=== PATIENT | female | born 1980 | race Caucasian/White ===

== ENCOUNTER 2019-05-12 13:57 | Emergency (ER) | payer OTHER ==
[2019-05-12 14:33] VITALS: BP 139/78
--- NOTE | 2019-05-12 15:32 | UC ---
Abdominal Pain Female HPI - HPI Summary HPI Summary: SUDDEN ONSET OF SHARP RUQ ABDOMINAL PAIN 2 DAYS AGO AFTER EATING PACO. LASTED FOR HOURS. SX WORSENED AGAIN AFTER EATING A TURKEY SANDWICH LATER THAT DAY. SX HAVE PERSISTED AND PAIN RADIATED TO RIGHT FLANK. PT ALSO HAS NAUSEA, CHILLS AND DECREASED APPETITE. NO FEVER. NO URINARY SX. - History of Current Complaint Chief Complaint: UCGI Stated Complaint: BACK PAIN Time Seen by Provider: 05/12/19 15:12 Hx Obtained From: Patient Hx Last Menstrual Period: 05/05/19 Onset/Duration: Sudden Onset, Lasting Days, Still Present Severity Initially: Moderate Severity Currently: Moderate Pain Intensity: 6 Pain Scale Used: 0-10 Numeric Location: Discrete At: RUQ Radiates: Yes Radiates to: Flank Character: Sharp Aggravating Factor(s): Food Alleviating Factor(s): Nothing Associated Signs and Symptoms: Positive: Back Pain, Decreased Appetite, Nausea. Negative: Diaphoresis, Fever, Constipation, Blood in Stool, Urinary Symptoms Allergies/Adverse Reactions: Allergies Allergy/AdvReac Type Severity Reaction Status Date / Time cyclobenzaprine Allergy Hives Verified 05/12/19 14:23 [From Flexeril] duloxetine [From Cymbalta] Allergy Blisters Verified 05/12/19 14:22 ibuprofen Allergy Diarrhea Verified 05/12/19 14:24 latex Allergy Rash Verified 05/12/19 14:23 Latex, Natural Rubber Allergy Rash Verified 05/12/19 14:24 metaxalone [From Skelaxin] Allergy Hives Verified 05/12/19 14:23 pregabalin [From Lyrica] Allergy Blisters Verified 05/12/19 14:22 Lidocaine patches 5% Allergy Vomiting Uncoded 05/12/19 14:24 PMH/Surg Hx/FS Hx/Imm Hx - Additional Past Medical History Additional PMH: CELIAC, FIBROMYALGIA Other History Of: Negative For: Anticoagulant Therapy - Surgical History Surgical History: Yes Surgery Procedure, Year, and Place: Right wrist ganglion cyst removed, cyst removed from 3rd digit on right finger 09/23/13 - Family History Known Family History: Positive: Cardiac Disease, Hypertension, Diabetes - Social History Alcohol Use: None Substance Use Type: None Smoking Status (MU): Former Smoker Type: Cigarettes Amount Used/How Often: 2013 Have You Smoked in the Last Year: Yes - Immunization History Most Recent Influenza Vaccination: Most Recent Tetanus Shot: 2005 Review of Systems All Other Systems Reviewed And Are Negative: Yes Constitutional: Positive: Chills Skin: Positive: Negative Respiratory: Positive: Negative Cardiovascular: Positive: Negative Gastrointestinal: Positive: Abdominal Pain, Nausea Genitourinary: Positive: Negative Musculoskeletal: Positive: Other: - RIGHT SIDED BACK PAIN Physical Exam Triage Information Reviewed: Yes Appearance: Well-Nourished, Pain Distress - MODERATE Vital Signs: Initial Vital Signs Temp 98.8 F 05/12/19 14:26 Pulse 66 05/12/19 14:26 Resp 16 05/12/19 14:26 BP 139/78 05/12/19 14:26 Pulse Ox 100 05/12/19 14:26 Vital Signs Reviewed: Yes Eyes: Positive: Conjunctiva Clear ENT: Positive: Hearing grossly normal Neck: Positive: Supple, Nontender, No Lymphadenopathy Respiratory Exam: Normal Cardiovascular Exam: Normal Abdomen Description: Positive: Nontender, Soft, CVA Tenderness (R). Negative: CVA Tenderness (L), Distended, Guarding Bowel Sounds: Positive: Present Musculoskeletal: Positive: No Edema Neurological: Positive: Alert Psychological: Positive: Age Appropriate Behavior Skin: Negative: Rashes Diagnostics - Laboratory Lab Results: URINE DIP SP. GR. 1.010, MOD KETONES. - Radiology RUQ US Radiology Interpretation Completed By: Radiologist Summary of Radiographic Findings: 1. SMALL ECHOGENIC LESION OF THE RIGHT LOBE OF THE LIVER. IN THE ABSENCE OF A HISTORY OF MALIGNANCY OR RISK FACTORS FOR HEPATOCELLULAR CARCINOMA, THIS MOST LIKE REPRESENTS AN INCIDENTAL HEPATIC HEMANGIOMA, THOUGH THIS IS NOT CLEARLY SEEN ON PREVIOUS IMAGING. GIVEN THE CHANGE FROM PREVIOUS EXAMINATIONS, RECOMMEND FOLLOW-UP EXAMINATION WITH 6 MONTH FOLLOW-UP SONOGRAPHY OF THE LIVER. 2. NO ACUTE SONOGRAPHIC PATHOLOGY OF THE VISUALIZED PORTION OF THE ABDOMEN Abd Pain Female Course/Dx - Course Course Of Treatment: ULTRASOUND TODAY NEGATIVE FOR GALLBLADDER DISEASE OR KIDNEY STONE. INCIDENTAL LESION SEEN IN THE LIVER. I HAVE ADVISED THE PATIENT TO BE SURE TO FOLLOW UP IN 6 MONTHS WITH HER PCP FOR REPEAT IMAGING. DISCUSSED OBTAINING A NONCONTRAST CT HERE IN THE URGENT CARE VERSUS GOING TO THE ER VERSUS CAREFUL OBSERVATION AT HOME. PATIENT PREFERS TO GO HOME WITH CAREFUL OBSERVATION AND WILL GO TO THE ER WITHOUT FAIL IF HER SYMPTOMS WORSEN OVER THE NEXT COUPLE OF DAYS. SHE WILL F/ U WITH HER PCP THIS WEEK. LABS OBTAINED TODAY INCLUDE CBC, CMP AND LIPASE. - Differential Dx/Diagnosis Provider Diagnosis: RUQ abdominal pain Discharge - Sign-Out/Discharge Documenting (check all that apply): Patient Departure All imaging exams completed and their final reports reviewed: Yes - Discharge Plan Condition: Stable Disposition: HOME Patient Education Materials: Abdominal Pain (ED), Flank Pain (ED) Referrals: Romero Cornelius MD [Primary Care Provider] - 3 Days Additional Instructions: UNCLEAR ETIOLOGY OF YOUR SYMPTOMS TODAY. WHAT YOU DESCRIBED IS SUGGESTIVE OF GALLBLADDER DISEASE HOWEVER YOUR GALLBLADDER APPEARED NORMAL ON ULTRASOUND TODAY. I WAS CONCERNED ABOUT POSSIBLE KIDNEY STONES GIVEN YOUR FLANK PAIN HOWEVER YOUR RIGHT KIDNEY ALSO LOOKS NORMAL ON ULTRASOUND. WE WILL FURTHER EVALUATE WITH LAB WORK INCLUDING BLOOD COUNT, METABOLIC PANEL AND PANCREATIC ENZYME. WE WILL CALL YOU WITH ANY ABNORMAL RESULTS. FOLLOW AN EASY DIET. AVOIDING GREASY FOOD, DAIRY FOOD, SPICY FOOD AND CAFFEINE. STAY WELL HYDRATED AND MONITOR YOUR SYMPTOMS. GO TO THE ER WITHOUT FAIL IF YOUR SYMPTOMS WORSEN. FOLLOW-UP WITH YOUR PCP THIS WEEK FOR FURTHER EVALUATION. RIGHT UPPER QUADRANT ULTRASOUND SHOWED: 1. SMALL ECHOGENIC LESION OF THE RIGHT LOBE OF THE LIVER. IN THE ABSENCE OF A HISTORY OF MALIGNANCY OR RISK FACTORS FOR HEPATOCELLULAR CARCINOMA, THIS MOST LIKE REPRESENTS AN INCIDENTAL HEPATIC HEMANGIOMA, THOUGH THIS IS NOT CLEARLY SEEN ON PREVIOUS IMAGING. GIVEN THE CHANGE FROM PREVIOUS EXAMINATIONS, RECOMMEND FOLLOW-UP EXAMINATION WITH 6 MONTH FOLLOW-UP SONOGRAPHY OF THE LIVER. 2. NO ACUTE SONOGRAPHIC PATHOLOGY OF THE VISUALIZED PORTION OF THE ABDOMEN BE SURE TO HAVE THE LIVER LESION RE-EVALUATED IN 6 MONTHS ADVISED BY THE RADIOLOGIST. - Billing Disposition and Condition Condition: STABLE Disposition: Home
[2019-05-13 11:30] LABS: ABS Basophils 0.1 10^3/ul (0-0.2); ABS Eosinophils 0.1 10^3/ul (0-0.6); ABS Lymphocytes 2.5 10^3/ul (1.0-4.8); ABS Monocytes 0.5 10^3/ul (0-0.8); Eosinophil % 1.3 %; Hematocrit 42 % (35-47); Hemoglobin 14.2 g/dL (12.0-16.0); Lymphocyte % 30.8 %; Mean Corpuscular HGB Conc 34 g/dL (31-36); Mean Corpuscular Hemoglobin 31 pg (27-31); Mean Corpuscular Volume 92 fL (80-97); Mean Platelet Volume 8.3 fL (7.4-10.4); Nucleated Red Blood Cells % 0.1; Platelet Count 237 10^3/uL (150-450); Red Blood Count 4.57 10^6 /uL (3.70-4.87); Red Cell Distribution Width 14 % (10-15); White Blood Count 8.1 10^3/uL (3.5-10.8)
[2019-05-13 11:44] LABS: Albumin 4.5 g/dL (3.2-5.2); Albumin/Globulin Ratio 1.8 (1-3); BUN/Creatinine Ratio 9.3 (8-20); Calcium 9.8 mg/dL (8.6-10.3); EGFR African American 103.6 (>60); EGFR Non-African American 85.6 (>60); Globulin 2.5 g/dL (2-4); Potassium 4.3 mmol/L (3.5-5.0); Total Bilirubin 0.7 mg/dL (0.2-1.0)
== END 2019-05-12 16:50 | disposition home or self-care (01) ==
LOC: UCEAST 13:57
DX: R10.11 Right upper quadrant pain (principal); Z91.040 Latex allergy status; Z87.891 Personal history of nicotine dependence
CPT/HCPCS: 36415; 76705; 80053; 81002; 83690; 85025; 99211; G0463

== ENCOUNTER 2019-07-08 23:59 | Emergency (ER) | payer OTHER ==
--- OUTSIDE RECORDS SUMMARY | 2019-07-09 00:11 | XMS REPORT | Continuity of Care Document ---
:1980 External Reference #:[id number] Author Name Wally Bates M.D. Address [address] [place] [address] Care Team Providers Name Role Phone Romero Cornelius M.D. 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 Onset: 05/29/2016 Social History Type Date Description Comments Sex Unknown ETOH Use Rarely consumes alcohol Tobacco Use Start: Unknown End: Unknown Patient is a former smoker Recreational Drug Use Denies Drug Use Smoking Status Reviewed: 06/16/19 Patient is a former smoker Allergies, Adverse Reactions, Alerts Active Allergies Reaction Severity Comments Date Flexeril 05/29/2016 Acetaminophen 05/29/2016 Lyrica 05/29/2016 Medications Active Medications SIG Qnty Indications Ordering Provider Date Clear Eyes Maximum Itchy Eye as needed Wally Bates, 06/10/2018 Relief MIgorDIgor 0.012-0.25-0.25% Solution Hydroxychloroquine Sulfate bid Hiro Soler MD 200mg Tablets Immunizations Description No Information Available Vital Signs Description No Information Available Results Description No Information Available Procedures Description No Information Available Medical Devices Description No Information Available Encounters Description No Information Available Assessments Date Code Description Provider 06/16/2019 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 06/16/2019 M06.9 Rheumatoid arthritis, unspecified Wally Bates M.D. 06/16/2019 H04.123 Dry eye syndrome of bilateral lacrimal Wally Bates M.D. glands Plan of Treatment 06/16/2019 - Wally Bates M.D.Z79.899 Other snf (current) drug therapyComments:Smoking can increase the risk of developing or worsening any eye related disease, as well as affect your overall health. If you are a smoker , we strongly recommend that you quit.If you are not a smoker, we strongly recommend that you do not start. Some of the medications you are on have the potential to cause damage to your retinas. Depending on the length of time that you have been taking the medication, Dr. Bates may monitor you annually or bi-annually. Dr. Bates may also order a Visual Field test or an Optical Coherence Tomography test to monitor your retinas.Follow up:1 Year Follow Up, DFE, VISUAL FIELD 10-2, OCT MAC, COLOR PLATES You can expect to have your eyes dilated at your next visit. If Dr. Bates orders any additional testing, it may require extra time. We recommend that you bring sunglasses, as dilation drops often make you light sensitive until they wear off. We always recommend you bring someone to drive you home if you are uncomfortable driving withyour eyes dilated. If you have any questions before your next visit, feel free to call our office [phone].M06.9 Rheumatoid arthritis, [id number] Dry eye syndrome of bilateral lacrimal glandsComments:Both of your eyes appear to be dry. Use artificial tears as directed. You can use the tears more often if you are reading a book or are on the computer, as we tend to blink less, making our eyes dry out more.[facility] offers a few items in our optical department to help alleviate dry eye symptoms. Functional Status Description No Information Available Mental Status Description No Information Available Referrals Description No Information Available
--- OUTSIDE RECORDS SUMMARY | 2019-07-09 00:11 | XMS REPORT | Summary of Care ---
:1980 Author Organization [facility] Address [address] [address] Care Team Providers Name Role Phone Romero Cornelius MD Primary Care Provider Reason for Referral MRI/CAT/PET Scan (Routine) Status Reason Specialty Diagnoses / Procedures Referred By Contact Referred To Contact Closed Diagnoses Generalized abdominal pain Romero Corneluis MD Procedures NM HEPATOBILIARY W EJECTION FRACTION CCK [address] [place] [address] Reason for Visit MRI/CAT/PET Scan (Routine) Status Reason Specialty Diagnoses / Procedures Referred By Contact Referred To Contact Closed Diagnoses Generalized abdominal pain Romero Cornelius MD Procedures NM HEPATOBILIARY W EJECTION FRACTION CCK [address] [place] [address] Encounter Details Date Type Department Care Team Description 05/20/2019 Hospital Encounter Hiro Garcia [place] Out[facility] [address] [address] Allergies Active Allergy Reactions Severity Noted Date Comments Cyclobenzaprine Base Rash 04/13/2009 Latex Hives High 01/25/2014 Metaxalone Rash 07/07/2009 documented as of this encounter (statuses as of 05/22/2019) Medications Medication Sig Dispensed Refills Start Date End Date Status hydroxychloroquine Take 400 mg by 0 Active (PLAQUENIL) 200 MG Oral mouth DAILY. Tab Omeprazole delayed rel cap Take 20 mg by 30 Cap 1 05/13/2019 Active 20 MG Oral CAPSULE DELAYED mouth DAILY. RELEASE Gluten free please ondansetron (ZOFRAN) 4 MG Take 4 mg by 18 Tab 0 05/13/2019 Active Oral Tab mouth EVERY EIGHT HOURS NEEDED (nausea). Gluten free please documented as of this encounter (statuses as of 05/22/2019) Active Problems Problem Noted Date Fatigue 03/23/2014 Adult BMI 30+ 01/25/2014 Overview: This patient's BMI This patient's BMI has been calculated and is above average, and BMI management plan is completed. General patient education discussion including: weight loss link to reduction of r isk factors for cardiac and other diseases, importance of long-term maintenance treatment in weight loss, and accomplish with exercise as tolerated and diet control Celiac disease Overview: BX + , lab work negative Fibromyalgia RA (rheumatoid arthritis) documented as of this encounter (statuses as of 05/22/2019) Social History Tobacco Use Types Packs/Day Years Used Date Former Smoker Quit: 06/27/2013 Smokeless Tobacco: Never Used Comments: Recently Quit Alcohol Use Drinks/Week oz/Week Comments No Sex Assigned at Date Recorded Not on file Job Start Date Occupation Industry Not on file Not on file Not on file Travel History Travel Start Travel End No recent travel history available. documented as of this encounter Last Filed Vital Signs Not on filedocumented in this encounter Plan of Treatment Health Maintenance Due Date Last Done Comments INFLUENZA VACCINE (#1) 2019 DEPRESSION SCREENING 02/18/2020 02/17/2019 DIABETES SCREENING 02/21/2020 02/20/2019, 07/07/2014 MAMMOGRAM (SCREENING) 02/27/2020 02/26/2019 PAP SMEAR 03/23/2022 03/23/2019 LIPID DISORDER SCREENING 02/21/2024 02/20/2019 HPV IMMUNIZATION SERIES Aged Out No longer eligible based on patient's age to complete this topic MENINGOCOCCAL VACCINE IMM Aged Out No longer eligible based on patient's age to complete this topic PNEUMOCOCCAL 0-64 YRS Aged Out No longer eligible based on patient's age to complete this topic documented as of this encounter Procedures Procedure Name Priority Date/Time Associated Comments Diagnosis NM HEPATOBILIARY W Routine 05/20/2019 9:10 Generalized Results for this EJECTION FRACTION CCK AM EDT abdominal pain procedure are in the results section. documented in this encounter Results NM HEPATOBILIARY W EJECTION FRACTION CCK (05/20/2019 9:10 AM EDT) Specimen Impressions Performed At 1. Normal visualization of the gallbladder, indicative of cystic duct patency. 2. Normal gallbladder ejection fraction. Urgency: Routine. This is a routine medical imaging report. Recommendation: No specific imaging recommendation. Signed by Gera Carrero on 05/20/2019 11:10 AM Narrative Performed At Procedure(s): NM HEPATOBILIARY W EJECTION FRACTION CCK Date of service: 05/20/2019 7:45 AM Provided clinical information: 38 years, Female, "abd pain" Protocol: Standard protocol. Comparison: No prior similar study available for comparison. Radiopharmaceutical: Tc-99m Mebrofenin Technique: Following the intravenous injection of 5.33 mCi of Tc-99m Mebrofenin, dynamic imaging of the abdomen was performed in the anterior projection over 60 minutes. Subsequently, 1.45 ug of CCK was given via slow intravenous infusion over 10 minutes, and imaging was continued for an additional 30 minutes. Findings: The liver appears normal in size, with homogeneous uptake of radiotracer, without focal abnormalities. The gallbladder is identified by 10-15 minutes. There is normal outline of intra- and extrahepatic bile ducts. Normal propulsion of the radiopharmaceutical is seen into the small bowel. Patient was injected with 1.45 ug of CCK over 15 minutes. Ejection fraction after 30 minutes is 75%. Normal for our laboratory is 33% at 30 minutes. Clinical symptoms with use of CCK: Nausea and low-level abdominal cramping/bloating, which resolved by the end of the exam. Procedure Note Interface, Rad Results - 05/20/2019 11:12 AM EDT Procedure(s): NM HEPATOBILIARY W EJECTION FRACTION CCK Date of service: 05/20/2019 7:45 AM Provided clinical information: 38 years, Female, "abd pain" Protocol: Standard protocol. Comparison: No prior similar study available for comparison. Radiopharmaceutical: Tc-99m Mebrofenin Technique: Following the intravenous injection of 5.33 mCi of Tc-99m Mebrofenin, dynamic imaging of the abdomen was performed in the anterior projection over 60 minutes. Subsequently, 1.45 ug of CCK was given via slow intravenous infusion over 10 minutes, and imaging was continued for an additional 30 minutes. Findings: The liver appears normal in size, with homogeneous uptake of radiotracer, without focal abnormalities. The gallbladder is identified by 10-15 minutes. There is normal outline of intra- and extrahepatic bile ducts. Normal propulsion of the radiopharmaceutical is seen into the small bowel. Patient was injected with 1.45 ug of CCK over 15 minutes. Ejection fraction after 30 minutes is 75%. Normal for our laboratory is 33% at 30 minutes. Clinical symptoms with use of CCK: Nausea and low-level abdominal cramping/bloating, which resolved by the end of the exam. IMPRESSION 1. Normal visualization of the gallbladder, indicative of cystic duct patency. 2. Normal gallbladder ejection fraction. Urgency: Routine. This is a routine medical imaging report. Recommendation: No specific imaging recommendation. Signed by Gera Carrero on 05/20/2019 11:10 AM documented in this encounter Visit Diagnoses Diagnosis Generalized abdominal pain Abdominal pain, generalized documented in this encounter Guarantor Name Account Type Relation to Date of Phone Billing Patient Address Anisha Jacobson Personal/Family 1980 [address] (Home) [facility] [phone] [place] [address] (Work) documented as of this encounter
[2019-07-09 01:26] LABS: ABS Basophils 0.1 10^3/ul (0-0.2); ABS Eosinophils 0.3 10^3/ul (0-0.6); ABS Lymphocytes 1.2 10^3/ul (1.0-4.8); ABS Monocytes 0.7 10^3/ul (0-0.8); ABS Neutrophils 4.7 10^3/ul (1.5-7.7); Eosinophil % 4.4 %; Hematocrit 40 % (35-47); Hemoglobin 13.5 g/dL (12.0-16.0); Lymphocyte % 17.7 %; Mean Corpuscular HGB Conc 34 g/dL (31-36); Mean Corpuscular Hemoglobin 31 pg (27-31); Mean Corpuscular Volume 91 fL (80-97); Mean Platelet Volume 7.7 fL (7.4-10.4); Platelet Count 191 10^3/uL (150-450); Red Blood Count 4.34 10^6 /uL (3.70-4.87); Red Cell Distribution Width 15 % (10-15); White Blood Count 6.9 10^3/uL (3.5-10.8)
[2019-07-09 01:33] LABS: INR 1.02 (0.82-1.09)
[2019-07-09 01:41] LABS: Albumin/Globulin Ratio 1.7 (1-3); BUN/Creatinine Ratio 12.1 (8-20); Calcium 8.8 mg/dL (8.6-10.3); EGFR Non-African American 99.2 (>60); Globulin 2.4 g/dL (2-4); Potassium 3.6 mmol/L (3.5-5.0); Total Protein 6.4 g/dL (6.4-8.9)
--- NOTE | 2019-07-09 02:21 | ED ---
Respiratory - HPI Summary HPI Summary: This pt is a 38 y/o female presenting to [facility] c/o cough and chest pain. Pt reports she has had a cough for the past 1 week with a sinus congestion and wheezing. She states her symptoms became worse today and it became harder to get a deep breath. Pt notes her chest pain developed yesterday and describes chest pain as pressure that has been consistent today. Denies fever, nausea, vomiting, diarrhea. Pt notes she has been taking Tylenol and Mucinex with mild relief. Pt reports tobacco use and alcohol use. Denies drug use. PMHx includes pneumonia. atopal has FHx of grandfather with CHF. Pt used to take RA medications but has celiac disease so she is no longer on them. P - History of Current Complaint Chief Complaint: EDChestPainROMI Stated Complaint: CHEST PAIN PER PT Time Seen by Provider: 07/09/19 01:42 Hx Obtained From: Patient Onset/Duration: Lasting Days, Still Present Current Severity: Moderate Pain Intensity: 2 Character: Wheezing Aggravating Factor(s): Nothing Alleviating Factor(s): Nothing Associated Signs and Symptoms: SOB, Chest Pain with Cough - Allergy/Home Medications Allergies/Adverse Reactions: Allergies Allergy/AdvReac Type Severity Reaction Status Date / Time cyclobenzaprine Allergy Hives Verified 07/09/19 00:09 [From Flexeril] duloxetine [From Cymbalta] Allergy Blisters Verified 07/09/19 00:09 ibuprofen Allergy Diarrhea Verified 07/09/19 00:09 latex Allergy Rash Verified 07/09/19 00:09 Latex, Natural Rubber Allergy Rash Verified 07/09/19 00:09 metaxalone [From Skelaxin] Allergy Hives Verified 07/09/19 00:09 pregabalin [From Lyrica] Allergy Blisters Verified 07/09/19 00:09 Lidocaine patches 5% Allergy Vomiting Uncoded 05/12/19 14:24 PMH/Surg Hx/FS Hx/Imm Hx Endocrine/Hematology History: Denies: Hx Anticoagulant Therapy, Hx Diabetes, Hx Systemic Lupus Erythematosus, Hx Thyroid Disease Cardiovascular History: Denies: Hx Congestive Heart Failure, Hx Hypertension, Hx Pacemaker/ICD, Hx Valvular Heart Disease, Other Cardiovascular Problems/Disorders Respiratory History: Reports: Hx Pneumonia Denies: Hx Asthma, Hx Chronic Obstructive Pulmonary Disease (COPD), Other Respiratory Problems/Disorders GI History: Denies: Hx Ulcer, Other GI Disorders History: Denies: Hx Dialysis, Hx Renal Disease, Other Problems/Disorders Musculoskeletal History: Reports: Hx Tendonitis - RIGHT HAND AND SHOULDER Denies: Hx Rheumatoid Arthritis Sensory History: Denies: Hx Contacts or Glasses, Hx Hearing Aid Opthamlomology History: Denies: Hx Contacts or Glasses Neurological History: Denies: Other Neuro Impairments/Disorders Psychiatric History: Denies: Hx Panic Disorder - Cancer History Hx Chemotherapy: No - Surgical History Surgery Procedure, Year, and Place: Right wrist ganglion cyst removed, cyst removed from 3rd digit on right finger 09/23/13 Hx Anesthesia Reactions: No Infectious Disease History: No Infectious Disease History: Reports: Hx Tuberculosis - states latent Denies: Hx Clostridium Difficile, Hx Hepatitis, Hx Human Immunodeficiency Virus (HIV), Hx of Known/Suspected MRSA, Hx Shingles, Hx Known/Suspected VRE, Hx Known/Suspected VRSA, History Other Infectious Disease, Traveled Outside the [place] in Last 30 Days - Family History Known Family History: Positive: Cardiac Disease - Grandfather with CHF, Hypertension, Diabetes - Social History Alcohol Use: Occasionally Substance Use Type: Reports: None Smoking Status (MU): Current Every Day Smoker Type: Cigarettes Amount Used/How Often: 2013 Have You Smoked in the Last Year: Yes Review of Systems - ROS Summary Review of Systems Summary: Home Medications Medication Instructions Recorded Confirmed Type Hydroxychloroquine TAB* [Plaquenil 400 mg PO DAILY 08/08/16 05/12/19 History TAB*] Amoxicillin/Clavulanate TAB* 875 mg PO BID 7 Days #14 tab 07/09/19 Rx [Augmentin TAB 875*] Negative: Fever, Chills ENT: Other - POSITIVE: sinus congestion Positive: Chest Pain Positive: Shortness Of Breath, Cough All Other Systems Reviewed And Are Negative: Yes Physical Exam - Summary Physical Exam Summary: General: Well-developed, Well-nourished female. No acute distress. HEENT: Normocephalic, Atraumatic. Eyes: Conjuctiva normal, PERRL. Ears: TMs within normal limits. Nares: (-) discharge, (-) erythema. Oropharynx: Clear, mucous membranes moist, (-) exudates. Neck: Soft, FROM, (-) lymphadenopathy, (-) thyromegaly, (-) JVD. Cardiovascular: Normal sinus rhythm, (-) murmur. Lungs: Decreased breath sounds bilaterally. Poor air exchange. Expiratory wheezing. Abdomen: Soft, non-tender, non-distended, (-) organomegaly, normal bowel sounds. Back: (-) CVA tenderness Extremities: No edema. Skin: Warm, dry, (-) rash. Neuro: Alert and oriented x3, no focal deficits. Psychiatric: Mood normal, affect normal. Triage Information Reviewed: Yes Vital Signs On Initial Exam: Initial Vitals Temp Pulse Resp BP Pulse Ox 97.7 F 89 18 123/85 98 07/09/19 00:01 07/09/19 00:01 07/09/19 00:01 07/09/19 00:01 07/09/19 00:01 Vital Signs Reviewed: Yes Diagnostics - Vital Signs Vital Signs Temp Pulse Resp BP Pulse Ox 07/09/19 02:08 64 14 131/72 95 07/09/19 02:00 60 14 95 07/09/19 01:38 71 22 120/77 96 07/09/19 01:11 69 16 96 07/09/19 01:10 20 131/91 07/09/19 00:01 97.7 F 89 18 123/85 98 - Laboratory Lab Results: Lab Results 07/09/19 07/09/19 07/09/19 Range/Units 01:10 01:10 01:10 WBC 6.9 (3.5-10.8) 10^3/uL RBC 4.34 (3.70-4.87) 10^6 /uL Hgb 13.5 (12.0-16.0) g/dL Hct 40 (35-47) % MCV 91 (80-97) fL MCH 31 (27-31) pg MCHC 34 (31-36) g/dL RDW 15 (10-15) % Plt Count 191 (150-450) 10^3/uL MPV 7.7 (7.4-10.4) fL Neut % (Auto) 67.5 % Lymph % (Auto) 17.7 % [place] % (Auto) 9.6 % Eos % (Auto) 4.4 % Baso % (Auto) 0.8 % Absolute Neuts (auto) 4.7 (1.5-7.7) 10^3/ul Absolute Lymphs (auto) 1.2 (1.0-4.8) 10^3/ul Absolute Monos (auto) 0.7 (0-0.8) 10^3/ul Absolute Eos (auto) 0.3 (0-0.6) 10^3/ul Absolute Basos (auto) 0.1 (0-0.2) 10^3/ul Absolute Nucleated RBC 0.0 10^3/ul Nucleated RBC % 0.0 INR (Anticoag Therapy) 1.02 (0.82-1.09) Sodium 137 (135-145) mmol/L Potassium 3.6 (3.5-5.0) mmol/L Chloride 109 (101-111) mmol/L Carbon Dioxide 23 (22-32) mmol/L Anion Gap 5 (2-11) mmol/L BUN 8 (6-24) mg/dL Creatinine 0.66 (0.51-0.95) mg/dL Est GFR ( Amer) 120.0 (>60) Est GFR (Non-Af Amer) 99.2 (>60) BUN/Creatinine Ratio 12.1 (8-20) Glucose 121 H (70-100) mg/dL Calcium 8.8 (8.6-10.3) mg/dL Total Bilirubin 1.00 (0.2-1.0) mg/dL AST 13 (13-39) U/L ALT 9 (7-52) U/L Alkaline Phosphatase 50 (34-104) U/L Troponin I 0.00 (<0.04) ng/mL Total Protein 6.4 (6.4-8.9) g/dL Albumin 4.0 (3.2-5.2) g/dL Globulin 2.4 (2-4) g/dL Albumin/Globulin Ratio 1.7 (1-3) Result Diagrams: 07/09/19 01:10 07/09/19 01:10 Lab Statement: Any lab studies that have been ordered have been reviewed, and results considered in the medical decision making process. - Radiology Chest XR Radiology Interpretation Completed By: ED Physician Summary of Radiographic Findings: No obvious infiltrates or pleural effusion. - EKG 00:01 Cardiac Rate: NL - at 81 bpm EKG Rhythm: Sinus Rhythm Summary of EKG Findings: EKG at 00:01 reveals normal sinus rhythm with rate of 81 bpm, no acute changes, no ischemic changes. This EKG was reviewed and interpreted by Dr. Pruitt. Re-Evaluation - Re-Evaluation First Eval Re-Evaluation Time: 03:25 Change: Improved Comment: I have discussed results with the patient and wheezing has improved. Discussed symptoms that warrant immediate return to the ED. Disposition - Course Assessment/Plan: Pt is a 38 y/o female presenting to [facility] c/o cough and chest pain. Pt reports she has had a cough for the past 1 week with a sinus congestion and wheezing. She states her symptoms became worse today and it became harder to get a deep breath. Pt notes her chest pain developed yesterday and describes chest pain as pressure that has been consistent today. On exam pt has decreased breath sounds bilaterally. Poor air exchange. Expiratory wheezing. Test results are unremarkable. Chest XR shows no obvious infiltrates or pleural effusion. In the ED course the pt was given an albuterol treatment. Pt is feeling better after treatment. She will be discharged home with follow up from her PCP in 3 days. Pt was given a Ventolin inhaler and a prescription for Augmentin. Pt was given instructions to return to the ED for any worsening or new symptoms. Tobacco cessation was recommended. - Diagnoses Provider Diagnoses: Bronchitis with bronchospasm Discharge ED - Sign-Out/Discharge Documenting (check all that apply): Patient Departure - Discharge home Patient Received Moderate/Deep Sedation with Procedure: No - Discharge Plan Condition: Stable Disposition: HOME Prescriptions: Amoxicillin/Clavulanate TAB* [Augmentin TAB 875*] 875 mg PO BID 7 Days #14 tab Patient Education Materials: How to Stop Smoking (ED), Acute Bronchitis (ED), Bronchospasm (ED) Referrals: Romero Cornelius MD [Primary Care Provider] - Additional Instructions: Tobacco cessation recommended. Please follow up with your primary care provider within three days. Please return to the ED for any new or worsening symptoms. - Billing Disposition and Condition Condition: STABLE Disposition: Home - Attestation Statements Document Initiated by Jadiel: Yes Documenting Scribe: Cindy Quintero Provider For Whom Jadiel is Documenting (Include Credential): Dr. Niesha Pruitt MD Scribe Attestation: Cindy Waters scribed for Dr. Niesha Pruitt MD on 07/09/19 at 0513. Scribe Documentation Reviewed: Yes Provider Attestation: The documentation as recorded by the Kunal maloneya Quintero accurately reflects the service I personally performed and the decisions made by me, Dr. Niesha Pruitt MD Status of Scribe Document: Viewed
[2019-07-09] MEDS ORDERED: Albuterol/Ipratropium NEB.SOL* Albuterol 2.5 MG/Ipratropium 0.5 MG 3 ML INH ONE (02:36)
[2019-07-09] MEDS ORDERED: Albuterol HFA INHALER* 8 gm MDI INH ONE (03:29)
[2019-07-09] MEDS ORDERED: Amoxicillin/Clavulanate TAB* 875 MG PO ONE (03:31)
[2019-07-09 03:54] VITALS: BP 121/83
== END 2019-07-09 03:52 | disposition home or self-care (01) ==
LOC: ED 23:59
DX: J40 Bronchitis, not specified as acute or chronic (principal); J98.01 Acute bronchospasm; F17.210 Nicotine dependence, cigarettes, uncomplicated; Z79.899 Other long term (current) drug therapy; Z88.8 Allergy status to other drugs, medicaments and biological substances; Z88.6 Allergy status to analgesic agent; Z91.040 Latex allergy status
CPT/HCPCS: 36415; 71045; 80053; 84484; 85025; 85610; 93005; 99282; A9270-GY